=== PATIENT | male | born 1975 | race Caucasian/White ===

== ENCOUNTER → 2019-03-06 12:21 | Emergency (ER) | payer MEDICAID, OTHER ==
[~2019-03-06 12:21] MED LIST: NS 0.9% 1000 ML** 1,000 ML IV ONE; Ondansetron INJ* 2 MG/ML VIAL IV ONE; PROCHLORPERAZINE INJ 5 MG/ML 2 ML VIAL IV PRN; PROCHLORPERAZINE INJ 5 MG/ML 2 ML VIAL ONE
--- NOTE | 2019-03-06 12:44 | ED ---
Abdominal Pain/Male - HPI Summary HPI Summary: A 43 y/o male presents to [facility] with a chief complaint of abdominal pain since 04:00 today. Per triage note, he was recently diagnosed with SBO and rates his pain as a 6/10 in severity. Temperature noted at 100.4. He describes his pain as a discomfort. He also c/o N/V/D, claiming that his diarrhea started out soft and progressed to watery. He reports that he has not been urinating since his diarrhea started. He also denies cough or EtOH use. He claims that he felt fine yesterday. He denies any surgeries besides surgery for a fractured thumb. He denies taking any medications. - History of Current Complaint Chief Complaint: EDAbdPain Stated Complaint: VOMITING/DHIARREA PER PT Time Seen by Provider: 03/06/19 12:31 Hx Obtained From: Patient Onset/Duration: Sudden Onset, Lasting Hours, Still Present Timing: Constant, Lasting Hours Severity Initially: Moderate Severity Currently: Moderate Pain Intensity: 6 Pain Scale Used: 0-10 Numeric Location: Diffuse Radiates: No Character: Other: - discomfort Aggravating Factor(s): Nothing Alleviating Factor(s): Nothing Associated Signs And Symptoms: Positive: Fever - 100.4, Urinary Symptoms - decreased frequency, Nausea, Vomiting, Diarrhea - Allergies/Home Medications Allergies/Adverse Reactions: Allergies Allergy/AdvReac Type Severity Reaction Status Date / Time No Known Allergies Allergy Verified 03/06/19 12:27 PMH/Surg Hx/FS Hx/Imm Hx Infectious Disease History: No Infectious Disease History: Denies: Traveled Outside the [place] in Last 30 Days Review of Systems Positive: Fever - 100.4 Negative: Cough Positive: Abdominal Pain, Vomiting, Diarrhea, Nausea Positive: frequency - decreased All Other Systems Reviewed And Are Negative: Yes Physical Exam - Summary Physical Exam Summary: Appearance: The patient is well-nourished in no acute distress and in no acute pain. Skin: The skin is warm and dry and skin color reflects adequate perfusion. HEENT: The head is normocephalic and atraumatic. The pupils are equal and reactive. The conjunctivae are clear and without drainage. Nares are patent and without drainage. Mouth reveals moist mucous membranes and the throat is without erythema and exudate. The external ears are intact. The ear canals are patent and without drainage. The tympanic membranes are intact. Neck: The neck is supple with full range of motion and non-tender. There are no carotid bruits. There is no neck vein distension. Respiratory: Chest is non-tender. Lungs are clear to auscultation and breath sounds are symmetrical and equal. Cardiovascular: Heart is regular rate and rhythm. There is no murmur or rub auscultated. There is no peripheral edema and pulses are symmetrical and equal. Abdomen: Mild epigastric tenderness. There are normal bowel sounds heard in all four quadrants and there is no organomegaly palpated. Musculoskeletal: There is no back tenderness noted. Extremities are non-tender with full range of motion. There is good capillary refill. There is no peripheral edema or calf tenderness elicited. Neurological: Patient is alert and oriented to person, place and time. The patient has symmetrical motor strength in all four extremities. Cranial nerves are grossly intact. Deep tendon reflexes are symmetrical and equal in all four extremities. Psychiatric: The patient has an appropriate affect and does not exhibit any anxiety or depression. Triage Information Reviewed: Yes Vital Signs On Initial Exam: Initial Vitals Temp Pulse Resp BP Pulse Ox 100.4 F 118 20 93/65 95 03/06/19 12:22 03/06/19 12:22 03/06/19 12:22 03/06/19 12:22 03/06/19 12:22 Vital Signs Reviewed: Yes Diagnostics - Vital Signs Vital Signs Temp Pulse Resp BP Pulse Ox 03/06/19 12:22 100.4 F 118 20 93/65 95 - Laboratory Result Diagrams: 03/06/19 13:23 03/06/19 13:23 Lab Statement: Any lab studies that have been ordered have been reviewed, and results considered in the medical decision making process. Re-Evaluation - Re-Evaluation First Eval Re-Evaluation Time: 16:52 Change: Unchanged Comment: Discussed results. Second Eval Re-Evaluation Time: 18:39 Change: Improved Comment: Patient is feeling better and ready to be discharged. Abdominal Pain Male Course/Dx - Course Course Of Treatment: Mr. Smith presented with what sounded like a viral or self- limiting bacterial acute gastroenteritis. He started with nausea and vomiting and developed diarrhea over the course of the day. An IV was established and he was given IV Zofran and fluids while labs were obtained. His labs were generally unremarkable and he did feel improved. We gave him a by mouth fluid challenge as he had been vomiting and diarrhea free for several hours. This caused him to begin to retch and he was given additional Compazine and fluid. On reassessment again he felt improved and was willing to try going home with ODT Zofran. At discharge he was noted to have a temperature of 101 which I think is related to this acute gastroenteritis. This - Diagnoses Provider Diagnoses: Acute gastroenteritis Discharge - Sign-Out/Discharge Documenting (check all that apply): Patient Departure - DC Patient Received Moderate/Deep Sedation with Procedure: No - Discharge Plan Condition: Stable Disposition: HOME Prescriptions: Ondansetron ODT TAB* [Zofran Odt TAB*] 4 mg PO Q6H PRN #20 tab.odt PRN Reason: Nausea/Vomiting Patient Education Materials: Gastroenteritis (DC) Referrals: Kiran Gandara, [Primary Care Provider] - (2-3 days) Additional Instructions: Return to the ED if you experience any new or worsening symptoms. - Billing Disposition and Condition Condition: STABLE Disposition: Home - Attestation Statements Document Initiated by Laishaibe: Yes Documenting Scribe: Filippo Jauregui Provider For Whom Robert is Documenting (Include Credential): Viet Rivas MD Scribe Attestation: I, Filippo Jauregui, scribed for Viet Rivas MD on 03/06/19 at 1852. Scribe Documentation Reviewed: Yes Provider Attestation: The documentation as recorded by the Filippo rowell accurately reflects the service I personally performed and the decisions made by me, Viet Rivas MD Status of Scribe Document: Viewed
[2019-03-06 13:33] LABS: ABS Basophils 0 10^3/ul (0-0.2); ABS Eosinophils 0 10^3/ul (0-0.6); ABS Lymphocytes 0.3 10^3/ul (1.0-4.8); ABS Monocytes 0.5 10^3/ul (0-0.8); ABS Neutrophils 10.1 10^3/ul (1.5-7.7); ABS Nucleated RBC 0 10^3/ul; Eosinophil % 0.1 %; Hematocrit 41 % (36-46); Hemoglobin 14.1 g/dL (14.0-18.0); Lymphocyte % 2.5 %; Mean Corpuscular HGB Conc 34 g/dL (31-36); Mean Corpuscular Hemoglobin 32 pg (27-31); Mean Corpuscular Volume 92 fL (80-94); Mean Platelet Volume 7.4 fL (7.4-10.4); Nucleated Red Blood Cells % 0.1; Platelet Count 179 10^3/uL (150-450); Red Blood Count 4.46 10^6 /uL (4.18-5.48); Red Cell Distribution Width 14 % (10.5-15); White Blood Count 10.9 10^3/uL (3.5-10.8)
[2019-03-06 13:53] LABS: ALT 16 U/L (7-52); AST 17 U/L (13-39); Albumin 4.2 g/dL (3.2-5.2); Albumin/Globulin Ratio 1.6 (1-3); Alkaline Phosphatase 70 U/L (34-104); Anion Gap 5 mmol/L (2-11); BUN/Creatinine Ratio 18.3 (8-20); Blood Urea Nitrogen 26 mg/dL (6-24); C Reactive Protein 13.28 mg/L (<8.01); CO2 Carbon Dioxide 25 mmol/L (22-32); Chloride 109 mmol/L (101-111); EGFR African American 65.2 (>60); EGFR Non-African American 53.9 (>60); Globulin 2.7 g/dL (2-4); Glucose 110 mg/dL (70-100); Potassium 4.4 mmol/L (3.5-5.0); Sodium 139 mmol/L (135-145); Total Protein 6.9 g/dL (6.4-8.9)
[2019-03-06 18:50] VITALS: BP 106/67
== END | disposition home or self-care (01) ==
LOC: ED 12:21
DX: K52.9 Noninfective gastroenteritis and colitis, unspecified (principal)
CPT/HCPCS: 36415; 80053; 83605; 83690; 85025; 86140; 87040; 96361; 96374; 96375; 99283; J0780; J2405